=== PATIENT | male | born 1940 | race Caucasian/White ===

== ENCOUNTER 2017-04-22 10:32 | Day surgery (SDC) | payer MEDICARE ==
[~2017-04-22] VITALS: Ht 177.8 cm; Wt 86.4 kg
[2017-04-22] MEDS ORDERED: ZOCOR20 MG PO (11:25)
[2017-04-22] MEDS ORDERED: NEURONTIN 300300 MG PO (11:26)
[2017-04-22] MEDS ORDERED: HYTRIN5 MG PO (11:26)
[2017-04-22] MEDS ORDERED: PLAVIX75 MG PO (11:27)
[2017-04-22] MEDS ORDERED: NEXIUM40 MG PO (11:27)
[2017-04-22] MEDS ORDERED: ULTRAM50 MG PO (11:28)
[2017-04-22] MEDS ORDERED: NEBULIZER UPD (11:30)
[2017-04-22 11:31] LABS: BASOPHILS 0.2 % (0-2); HEMATOCRIT 43.6 % (42.0-54.0); HEMOGLOBIN 14.4 g/dL (13.5-17.5); IMMATURE GRANULOCYTES 0.4 % (0-5); MCH 30.1 pg (26.0-34.0); MCV 91.2 fL (80.0-100.0); MEAN PLATELET VOLUME 9.1 fL (7.4-10.4); MONOCYTES 9.1 % (2-11); NEUTROPHILS 63.3 % (40-80); PLATELET COUNT 219 10x3/uL (130-400); RBC 4.78 10x6/uL (4.20-6.10); RDW 12.8 % (11.5-14.5)
[2017-04-22 11:46] VITALS: BP 116/62; Ht 177.8 cm; Wt 86.4 kg
[2017-04-22 11:48] LABS: ANION GAP 14.5 mmol/L (8-16); CALCIUM 9.6 mg/dL (8.5-10.1); CARBON DIOXIDE 26.6 mmol/L (21.0-32.0); CREATININE - SERUM 1.1 mg/dL (0.6-1.3); POTASSIUM - SERUM 4.1 mmol/L (3.5-5.1)
--- NOTE | 2017-04-22 15:33 | NUR ---
1445-RECD TO ROOM FROM GI LAB. ALERT. DR NAVARRO IN TO REPORT FINDINGS. 1500-FULL LIQUIDS SERVED 1520-IV D/C.
--- NOTE | 2017-04-23 11:02 | OP ---
PATIENT NAME: CY TA MEDICAL RECORD: [id number] :42 LOCATION:[facility] ADMISSION DATE: SURGEON: BREEZY NAVARRO DO DATE OF OPERATION: 04/22/2017 PROCEDURE: Colonoscopy with polypectomy. INDICATIONS FOR PROCEDURE: Hematochezia, constipation, and lower abdominal pain. SCOPE: [employer] video pediatric colonoscope. MEDICATIONS: Propofol 400 mg IV per anesthesia. ESTIMATED BLOOD LOSS: Minimal. COMPLICATIONS: None. FINDINGS: Informed consent was given. The patient was made comfortable with the above medication. After reaching an adequate level of sedation by slow IV push, the patient was placed on his left side. A digital rectal examination was performed and was normal. The endoscope was then advanced under direct visualization through the rectum to the cecum with visualization of the appendiceal orifice and ileocecal valve. The scope was slowly withdrawn and mucosa was carefully examined. The prep quality was excellent. There were 2 polyps visualized on today's examination. The first was located in the ascending colon. It was benign appearing and sessile and measured approximately 5 mm in diameter. It was removed using hot snare in one piece and completely retrieved. The second polyp was located in the transverse colon. It was benign appearing and sessile and measured approximately 6 mm in diameter. It was removed using hot snare in one piece and completely retrieved. There was evidence of mild diverticulosis involving the sigmoid and distal descending colon. Retroflexion was performed in the rectum with visualization of medium sized grade II internal hemorrhoids without bleeding. The endoscope was then withdrawn from the patient. The patient tolerated the procedure well and there were no complications. IMPRESSION: 1. Two polyps as described above removed using a hot snare. 2. Mild diverticulosis of the descending and sigmoid colon. 3. Grade II internal hemorrhoids without bleeding. PLAN AND RECOMMENDATIONS: 1. Discharge home when recovery parameters are met. 2. Follow up biopsy specimen results. 3. High-fiber diet. 4. Supplement diet with Metamucil or psyllium husk fiber 2 tablespoons daily. 5. We will give a prescription for Linzess 190 mcg capsules if needed for constipation after being on fiber. 6. The patient should notify the clinic if his symptoms worsen and fail to improve. 7. No recall colonoscopy is necessary based on the patient's age, unless symptoms warrant. TRANSINT:[id number] Voice Confirmation ID: [id number] DOCUMENT ID: [id number] OPERATIVE REPORT [id number] CY TA NATHAN A DO at 1102 CC: [id number] DICTATION DATE: 04/22/171426 ACQUISITION ASSOCIATE: 04/22/17 1459 [facility] 04/22/17 [place] [id number] [place] [id number]
== END 2017-04-22 15:45 | disposition home or self-care (01) ==
LOC: D.OPS 10:32
PROVIDERS: Anesthesiology
DX: K92.1 Melena (principal); K59.00 Constipation, unspecified; K63.5 Polyp of colon; R10.9 Unspecified abdominal pain; Z01.812 Encounter for preprocedural laboratory examination; J44.9 Chronic obstructive pulmonary disease, unspecified